=== PATIENT | female | born 1940 | race Two or more races ===

== ENCOUNTER 2024-04-27 01:47 | Inpatient (IN) | payer OTHER ==
[2024-04-27] VITALS (9 sets, daily range): BP systolic 123–141; BP diastolic 42–60; PULSE 60–79; RESP 16–20; TEMP 97.9–98.8; O2SAT 92–99
[~2024-04-27] VITALS: Ht 160 cm; Wt 82.6 kg
[2024-04-27] MEDS ORDERED: ACETAMINOPHEN 325 MG TAB PO PRN (03:00)
[2024-04-27] MEDS ORDERED: ONDANSETRON HCL 4 MG/2 ML VIAL IV PRN (03:00)
[2024-04-27] MEDS ORDERED: NITROGLYCERIN 0.4 MG SL TAB SL PRN (03:00)
[2024-04-27 03:36] LABS: Basophils # (auto) 0 10 ^3/uL (0-0.2); Basophils % (auto) 0.3 % (0.0-2.0); Eosinophils # (auto) 0 10 ^3/uL (0-0.8); Hematocrit 38.4 % (36.0-46.0); Lymphocytes # (auto) 0.6 10 ^3/uL (0.4-5.4); Lymphocytes % (auto) 4.9 % (10.0-50.0); Mean Corpuscular Hemoglobin 30.4 pg (28.0-32.0); Mean Corpuscular Hgb Conc. 33.7 g/dL (32.0-36.0); Mean Corpuscular Volume 90.2 fL (80.0-100.0); Monocytes # (auto) 0.7 10 ^3/uL (0-1.3); Monocytes % (auto) 5.9 % (0.0-12.0); Neutrophils # (auto) 11.2 10 ^3/uL (1.6-8.6); Neutrophils % (auto) 88.9 % (37.0-80.0); Nucleated Red Blood Cells % 0.1 %; Platelet Count (auto) 297 10^3/uL (140-450); Red Blood Cells 4.26 10^6/uL (4.0-5.20); Red Cell Distribution Width 15.5 % (11.8-14.3); White Blood Cell 12.6 10^3/uL (4.4-10.8)
[2024-04-27 03:40] LABS: INR 1.02 (0.9-1.15); Prothrombin Time 10.8 sec (9.3-11.8)
[2024-04-27 03:42] LABS: Alanine Aminotransferase 226 U/L (7-40); Albumin 4.3 g/dL (3.2-4.8); Alkaline Phosphatase 178 U/L (46-116); Anion Gap 10 (5-15); Aspartate Aminotransferase 562 U/L (13-40); BUN/Creatinine Ratio 22.7 (10.0-20.0); Blood Urea Nitrogen 22 mg/dL (9-23); Calcium 10.6 mg/dL (8.7-10.4); Carbon Dioxide 24 mmol/L (20-31); Chloride 103 mmol/L (98-107); Glucose 145 mg/dL (74-106); Sodium 137 mmol/L (136-145)
[2024-04-27 03:43] LABS: Bilirubin, Total 3.2 mg/dL (0.2-1.0)
[2024-04-27] MEDS: MORPHINE SULFATE INJ 2 MG/ml SYRG IV PRN (03:54)
[2024-04-27 03:56] LABS: LDL Cholesterol 119 mg/dL (< 100); Triglycerides 213 mg/dL (< 150)
[2024-04-27 03:58] LABS: Cholesterol 186 mg/dL (< 200); HDL Cholesterol 34 mg/dL (40-59)
[2024-04-27] MEDS: HYDROcodone-ACET 5/325MG TAB PO PRN (05:12)
[2024-04-27] MEDS: ASPirin 81 mg TAB PO SCH (10:03)
[2024-04-27] MEDS: FAMOTIDINE 20 MG TAB PO SCH (10:03)
[2024-04-27] MEDS: ENOXAPARIN SOD 40 MG/0.4 ML SYRINGE SC SCH (10:04)
[2024-04-27] MEDS: SOD CHL 0.45% 1,000 ML IV SCH (14:23)
[2024-04-27 15:39] LABS: Urine Bacteria MANY /hpf (None Seen); Urine Blood Negative /uL (Negative); Urine Clarity Turbid (Clear); Urine Color Dark-Yellow (Yellow); Urine Mucus FEW (None Seen); Urine Protein, UAD TRACE (Negative); Urine Specific Gravity 1.027 (1.001-1.035); Urine Urobilinogen OVER mg/dL (Negative); Urine WBC <1 /hpf (0 - 5); Urine pH 5.5 (5.0-9.0)
[2024-04-27] MEDS: ATORVASTATIN 20 MG TAB PO SCH (21:45)
[2024-04-28] VITALS (15 sets, daily range): BP systolic 120–139; BP diastolic 40–66; PULSE 54–130; RESP 16–21; TEMP 97.2–98.7; O2SAT 92–99
[2024-04-28 07:14] LABS: Basophils # (auto) 0 10 ^3/uL (0-0.2); Basophils % (auto) 0.4 % (0.0-2.0); Eosinophils # (auto) 0.1 10 ^3/uL (0-0.8); Hematocrit 34.4 % (36.0-46.0); Hemoglobin 12.1 g/dL (12.2-16.2); Lymphocytes # (auto) 1.2 10 ^3/uL (0.4-5.4); Mean Corpuscular Hgb Conc. 35.3 g/dL (32.0-36.0); Mean Corpuscular Volume 87.9 fL (80.0-100.0); Monocytes # (auto) 0.6 10 ^3/uL (0-1.3); Monocytes % (auto) 6.9 % (0.0-12.0); Neutrophils # (auto) 6.2 10 ^3/uL (1.6-8.6); Neutrophils % (auto) 76.7 % (37.0-80.0); Nucleated Red Blood Cells % 0.1 %; Platelet Count (auto) 285 10^3/uL (140-450); Red Blood Cells 3.91 10^6/uL (4.0-5.20); Red Cell Distribution Width 15.7 % (11.8-14.3); White Blood Cell 8.1 10^3/uL (4.4-10.8)
[2024-04-28 07:19] LABS: Alanine Aminotransferase 165 U/L (7-40); Albumin 3.9 g/dL (3.2-4.8); Alkaline Phosphatase 168 U/L (46-116); Anion Gap 9 (5-15); Aspartate Aminotransferase 221 U/L (13-40); BUN/Creatinine Ratio 20.7 (10.0-20.0); Blood Urea Nitrogen 17 mg/dL (9-23); Calcium 10.2 mg/dL (8.7-10.4); Carbon Dioxide 24 mmol/L (20-31); Chloride 103 mmol/L (98-107); Glucose 94 mg/dL (74-106); Potassium 3.3 mmol/L (3.5-5.1); Sodium 136 mmol/L (136-145)
[2024-04-28 07:20] LABS: Bilirubin, Total 3.6 mg/dL (0.2-1.0); Total Protein 6.4 g/dL (5.7-8.2)
[2024-04-28] MEDS: HEPARIN IN NS 1000Units/500mL 1,500 ML ONE (13:20)
[2024-04-28] MEDS: IODIXANOL 320MG/ML 100ML BTL IV ONE (13:20)
[2024-04-28] MEDS: HEPARIN SODIUM (PORCINE) 5000 UNITS/ML 1ML VIAL ONE (13:53)
[2024-04-28] MEDS: fentaNYL CITRATE 100 MCG/2 ML VL ONE (13:53)
[2024-04-28] MEDS: ANGIOMAX 250 MG VIAL IV ONE (13:53)
[2024-04-28] MEDS: VERAPAMIL 2.5MG/ML INJ 2ML VIAL IV ONE (13:53)
[2024-04-28] MEDS: LIDOCAINE 2%HCL (LOCAL ANESTH.) INJ 20ML MDV ONE (13:54)
[2024-04-28] MEDS: SODIUM CHL 0.9% 0 ML ONE (13:54)
[2024-04-28] MEDS: MIDAZOLAM HCL 2MG/2ML 2ml VIAL (1mg/ml) ONE (13:54)
[2024-04-28] MEDS ORDERED: CLINIMIX PER PHARMACY 0 ML IV SCH (15:15)
[2024-04-28 15:46] LABS: Magnesium 2.1 mg/dL (1.6-2.6)
[2024-04-28 15:48] LABS: Phosphorus 2.4 mg/dL (2.4-5.1)
[2024-04-28] MEDS: METOPROLOL TARTRATE 1MG/1ML-5ML VIAL IV ONE ×2 (16:05→16:16)
[2024-04-28] MEDS: POTASSIUM EFFERVESENT TAB 25 MEQ PO ONE (16:10)
[2024-04-28] MEDS ORDERED: DIGOXIN (250MCG/ML) 2 ML AMPULE IV ONE (17:45)
[2024-04-28] MEDS: dilTIAZem 25 MG/5 ML VIAL IV ONE ×2 (17:50→17:54)
[2024-04-28] MEDS: DIGOXIN (250MCG/ML) 2 ML AMPULE ONE (17:53)
[2024-04-28] MEDS: SODIUM PHOSP 20MEQ(15MMOL) IN NS 100 ML IV ONE (18:44)
[2024-04-28] MEDS: AMINO ACID INFUSION IN D10W 1,000 ML IV SCH (22:41)
[2024-04-29] VITALS (7 sets, daily range): BP systolic 128–151; BP diastolic 51–65; PULSE 53–110; RESP 16–18; TEMP 36.7; O2SAT 94–98
[2024-04-29] MEDS ORDERED: DEXTROSE (50%) 50ML SYRG IV SCH
[2024-04-29] MEDS: ACCU-CHEK COMFORT CURVE STRIP VI SCH (01:09)
[2024-04-29] MEDS: InsuLIN REG 1unit/0.01ml Soln (100units/ml) SC SCH (01:10)
[2024-04-29 06:41] LABS: Basophils # (auto) 0 10 ^3/uL (0-0.2); Basophils % (auto) 0.5 % (0.0-2.0); Eosinophils # (auto) 0 10 ^3/uL (0-0.8); Eosinophils % (auto) 0.7 % (0.0-7.0); Hematocrit 35.6 % (36.0-46.0); Hemoglobin 12.3 g/dL (12.2-16.2); Lymphocytes % (auto) 14.6 % (10.0-50.0); Mean Corpuscular Hemoglobin 30.5 pg (28.0-32.0); Mean Corpuscular Hgb Conc. 34.5 g/dL (32.0-36.0); Mean Corpuscular Volume 88.3 fL (80.0-100.0); Monocytes # (auto) 0.6 10 ^3/uL (0-1.3); Monocytes % (auto) 8.1 % (0.0-12.0); Neutrophils # (auto) 5.4 10 ^3/uL (1.6-8.6); Neutrophils % (auto) 76.1 % (37.0-80.0); Platelet Count (auto) 305 10^3/uL (140-450); Red Blood Cells 4.03 10^6/uL (4.0-5.20); Red Cell Distribution Width 15.7 % (11.8-14.3); White Blood Cell 7.1 10^3/uL (4.4-10.8)
[2024-04-29 07:20] LABS: Alanine Aminotransferase 103 U/L (7-40); Albumin 3.6 g/dL (3.2-4.8); Alkaline Phosphatase 160 U/L (46-116); Anion Gap 8 (5-15); Aspartate Aminotransferase 71 U/L (13-40); BUN/Creatinine Ratio 27.3 (10.0-20.0); Bilirubin, Total 1.4 mg/dL (0.2-1.0); Blood Urea Nitrogen 21 mg/dL (9-23); Calcium 9.8 mg/dL (8.7-10.4); Carbon Dioxide 24 mmol/L (20-31); Chloride 103 mmol/L (98-107); Glucose 116 mg/dL (74-106); Phosphorus 2.1 mg/dL (2.4-5.1); Potassium 3.4 mmol/L (3.5-5.1); Sodium 135 mmol/L (136-145); Total Protein 6.1 g/dL (5.7-8.2)
[2024-04-29] MEDS: ENOXAPARIN SOD 40 MG/0.4 ML SYRINGE SC SCH (11:23)
[2024-05-01 10:23] LABS: Hepatitis A Total Antibody Positive (Negative)
[2024-05-01 10:24] LABS: Hepatitis B Core Total AB Negative (Negative); Hepatitis B Surface Antibody Negative (Negative); Hepatitis B Surface Antigen Negative (Negative); Hepatitis C Antibody Negative (Negative)
== END 2024-04-29 20:25 | disposition short-term general hospital (02) | DRG 445 ==
LOC: TELE-EAST 02:17
PROVIDERS: ADMIT Nurse Practitioner Family; ATTEND Internal Medicine
PROC: 4A023N7 Measurement of Cardiac Sampling and Pressure, Left Heart, Percutaneous Approach (ICD-10-PCS; principal; 2024-04-28)
PROC: B211YZZ Fluoroscopy of Multiple Coronary Arteries using Other Contrast (ICD-10-PCS; 2024-04-28)
PROC: B215YZZ Fluoroscopy of Left Heart using Other Contrast (ICD-10-PCS; 2024-04-28)
DX: K80.50 Calculus of bile duct without cholangitis or cholecystitis without obstruction (principal); I42.9 Cardiomyopathy, unspecified; M94.0 Chondrocostal junction syndrome [Tietze]; I25.10 Atherosclerotic heart disease of native coronary artery without angina pectoris; R74.01 Elevation of levels of liver transaminase levels; I11.0 Hypertensive heart disease with heart failure; I50.9 Heart failure, unspecified; K21.9 Gastro-esophageal reflux disease without esophagitis; E78.5 Hyperlipidemia, unspecified; K42.9 Umbilical hernia without obstruction or gangrene; Z87.891 Personal history of nicotine dependence; Z90.49 Acquired absence of other specified parts of digestive tract
CPT/HCPCS: 36415; 71045; 74181; 76705; 80053; 80061; 81001; 82962; 83690; 83735; 84100; 84484; 85025; 85610; 86704; 86706; 86708; 86803; 87340; 93005; 93306; 93458; 96372; 96374; 97110; 97116; 97163; 97530; 99152; 99291; G0378; J2250; Q9967